=== PATIENT | male | born 1960 | race Caucasian/White ===

== ENCOUNTER 2024-08-08 08:59 | Inpatient (IN) ==
[2024-08-08] MEDS: ONDANSETRON 4 MG/2 ML VIAL IV ONE (09:30)
[2024-08-08] MEDS: 0.9 % SODIUM CHLORIDE 1,000 ML IV ONE (09:41)
[2024-08-08 10:15] LABS: Basophils # (Auto) 0.12 K/mcL (0.00-0.30); Basophils % (Auto) 1.2 % (0.0-2.0); Eosinophils # (Auto) 0.26 K/mcL (0.00-0.70); Eosinophils % (Auto) 2.6 % (0.0-7.0); Hematocrit 39.1 % (40.1-51.0); Hemoglobin 13.9 g/dL (13.7-17.5); Lymphocytes # (Auto) 1.14 K/mcL (1.50-4.80); Lymphocytes % (Auto) 11.3 % (15.5-49.0); Mean Cell Volume 82.7 fL (80.0-100.0); Mean Corpuscular HGB Conc 35.5 g/dL (31.0-36.0); Mean Platelet Volume 10.4 fL (8.8-12.5); Monocytes # (Auto) 0.45 K/mcL (0.10-0.90); Monocytes % (Auto) 4.5 % (1.0-12.0); Neutrophils % (Auto) 80.3 % (38.0-78.0); Platelet Count 306 K/mcL (140-440); RBC 4.73 M/mcL (4.63-6.08); Red Cell Distribution Width 13.2 % (11.5-14.5); WBC 10.1 K/mcL (4.5-11.0)
[2024-08-08 10:24] LABS: Thyroid Stimulating Hormone 1.13 uIU/mL (0.27-5.01)
[2024-08-08 10:46] LABS: ALT/SGPT 22 U/L (<40); AST/SGOT 40 U/L (<40); Albumin 2.8 gm/dL (3.2-5.2); Albumin/Globulin Ratio 0.8 (1.0-2.3); Alkaline Phosphatase 189 U/L (39-117); Bilirubin,Total 0.8 mg/dL (0.1-1.0); Blood Urea Nitrogen 22 mg/dL (8-23); Calcium 8.8 mg/dL (8.6-10.4); Carbon Dioxide 15 mmol/L (22-30); Chloride 107 mmol/L (96-108); Globulin 3.7 gm/dL (2.2-3.7); Glomerular Filtration Rate 23; Glucose 128 mg/dL (70-105); Potassium 3.2 mmol/L (3.3-5.1); Sodium 138 mmol/L (133-145)
[2024-08-08 10:47] LABS: INR 1.1 (0.9-1.1)
[2024-08-08 14:48] LABS: Appearance,Urine Clear (Clear); Bilirubin,Urine Negative (Negative); Color,Urine Yellow; Glucose,Urine (UA) 250 mg/dL (Negative); Ketones,Urine Negative (Negative); Leukocyte Esterase,Urine Negative /uL (Negative); Nitrate,Urine Negative (Negative); Protein,Urine >=300 mg/dL (Negative); Specific Gravity,Urine 1.025 (1.000-1.035); Urine Blood Moderate ery/mcL (Negative); Urine Hyaline Cast 4 /lph (0-2); Urine RBC 11 /hpf (0-3); Urine Squamous Epithelial Cell 2 /hpf (0-4); Urine WBC 2 /hpf (0-4); Urobilinogen,Urine Normal
[2024-08-08] MEDS ORDERED: DEXTROSE 31 GM ORAL.SUSP PO PRN (18:50)
[2024-08-08] MEDS ORDERED: ONDANSETRON 4 MG/2 ML VIAL IV PRN (18:50)
[2024-08-08] MEDS ORDERED: DEXTROSE 50% 50 ML VIAL IV PRN (18:50)
[2024-08-08] MEDS: 0.9 % SODIUM CHLORIDE 1,000 ML IV SCH (19:48)
[2024-08-08] MEDS: LISINOPRIL 20 MG TABLET PO SCH (20:01)
[2024-08-08] MEDS: BISOPROLOL 5 MG TABLET PO SCH (20:01)
[2024-08-08] MEDS: POLYETHYLENE GLYCOL 3350 17 GM PACKET PO ONE (20:08)
[2024-08-08] MEDS: POTASSIUM CHLORIDE 20 MEQ PACKET PO ONE (20:08)
[2024-08-08] MEDS: INSULIN LISPRO 1 UNIT/0.01 ML UNIT SQ SCH (21:04)
[2024-08-08] MEDS: SENNOSIDES 1 TABLET PO SCH (21:59)
[2024-08-08] MEDS: 0.9 % SODIUM CHLORIDE 10 ML SYRINGE IV SCH (22:00)
[2024-08-08] MEDS: ATORVASTATIN 40 MG TABLET PO SCH (22:00)
[2024-08-08] MEDS: TAMSULOSIN 0.4 MG CAPSULE PO SCH (22:00)
[2024-08-08 22:05] LABS: Potassium 4.7 mmol/L (3.3-5.1)
[2024-08-09] MEDS: ACETAMINOPHEN 325 MG TABLET PO PRN (05:47)
[2024-08-09 06:37] LABS: Basophils # (Auto) 0.06 K/mcL (0.00-0.30); Basophils % (Auto) 0.7 % (0.0-2.0); Eosinophils # (Auto) 0.11 K/mcL (0.00-0.70); Eosinophils % (Auto) 1.2 % (0.0-7.0); Hematocrit 39.8 % (40.1-51.0); Hemoglobin 13.9 g/dL (13.7-17.5); Lymphocytes # (Auto) 1.16 K/mcL (1.50-4.80); Mean Cell Volume 84.1 fL (80.0-100.0); Mean Corpuscular HGB Conc 34.9 g/dL (31.0-36.0); Mean Platelet Volume 10.5 fL (8.8-12.5); Monocytes # (Auto) 0.83 K/mcL (0.10-0.90); Monocytes % (Auto) 9.3 % (1.0-12.0); Neutrophils % (Auto) 75.7 % (38.0-78.0); Platelet Count 313 K/mcL (140-440); RBC 4.73 M/mcL (4.63-6.08); Red Cell Distribution Width 13.7 % (11.5-14.5); WBC 8.9 K/mcL (4.5-11.0)
[2024-08-09 06:55] LABS: ALT/SGPT 20 U/L (<40); AST/SGOT 30 U/L (<40); Albumin 2.8 gm/dL (3.2-5.2); Albumin/Globulin Ratio 0.9 (1.0-2.3); Alkaline Phosphatase 170 U/L (39-117); Bilirubin,Direct 0.4 mg/dL (<0.3); Bilirubin,Total 0.7 mg/dL (0.1-1.0); Blood Urea Nitrogen 27 mg/dL (8-23); Calcium 8.8 mg/dL (8.6-10.4); Carbon Dioxide 20 mmol/L (22-30); Chloride 108 mmol/L (96-108); Glomerular Filtration Rate 22; Glucose 124 mg/dL (70-105); Lactate Dehydrogenase 240 U/L (135-225); Phosphorous 3.8 mg/dL (2.5-4.5); Potassium 4.5 mmol/L (3.3-5.1); Sodium 139 mmol/L (133-145); Triglycerides 115 mg/dL (<150); Uric Acid 6.5 mg/dL (2.5-8.0)
[2024-08-09] MEDS: POLYETHYLENE GLYCOL 3350 17 GM PACKET PO SCH (08:07)
[2024-08-10 06:41] LABS: Basophils # (Auto) 0.08 K/mcL (0.00-0.30); Eosinophils % (Auto) 4.9 % (0.0-7.0); Hematocrit 35.8 % (40.1-51.0); Hemoglobin 12.2 g/dL (13.7-17.5); Lymphocytes # (Auto) 1.19 K/mcL (1.50-4.80); Lymphocytes % (Auto) 14.6 % (15.5-49.0); Mean Cell Volume 86.1 fL (80.0-100.0); Mean Corpuscular HGB Conc 34.1 g/dL (31.0-36.0); Mean Platelet Volume 10.3 fL (8.8-12.5); Monocytes # (Auto) 0.84 K/mcL (0.10-0.90); Monocytes % (Auto) 10.3 % (1.0-12.0); Neutrophils % (Auto) 69.1 % (38.0-78.0); Platelet Count 258 K/mcL (140-440); RBC 4.16 M/mcL (4.63-6.08); Red Cell Distribution Width 13.7 % (11.5-14.5); WBC 8.1 K/mcL (4.5-11.0)
[2024-08-10 06:56] LABS: ALT/SGPT 18 U/L (<40); AST/SGOT 31 U/L (<40); Albumin 2.5 gm/dL (3.2-5.2); Alkaline Phosphatase 140 U/L (39-117); Bilirubin,Direct 0.3 mg/dL (<0.3); Bilirubin,Total 0.6 mg/dL (0.1-1.0); Blood Urea Nitrogen 30 mg/dL (8-23); Calcium 8.3 mg/dL (8.6-10.4); Carbon Dioxide 16 mmol/L (22-30); Chloride 109 mmol/L (96-108); Globulin 2.5 gm/dL (2.2-3.7); Glomerular Filtration Rate 20; Glucose 91 mg/dL (70-105); Lactate Dehydrogenase 210 U/L (135-225); Phosphorous 3.9 mg/dL (2.5-4.5); Sodium 137 mmol/L (133-145); Triglycerides 103 mg/dL (<150); Uric Acid 6.3 mg/dL (2.5-8.0)
[2024-08-10] MEDS: 0.9 % SODIUM CHLORIDE 500 ML IV ONE (11:15)
[2024-08-10 13:40] LABS: Blood Urea Nitrogen 28 mg/dL (8-23); Calcium 8.1 mg/dL (8.6-10.4); Carbon Dioxide 18 mmol/L (22-30); Chloride 106 mmol/L (96-108); Glomerular Filtration Rate 21; Glucose 217 mg/dL (70-105); Potassium 4.2 mmol/L (3.3-5.1); Sodium 136 mmol/L (133-145)
[2024-08-10] MEDS ORDERED: hydrALAZINE 20 MG/ML VIAL IV PRN (15:28)
[2024-08-10] MEDS: IBUPROFEN 600 MG TABLET PO PRN (22:21)
[2024-08-10] MEDS: APIXABAN 5 MG TABLET PO SCH (22:22)
[2024-08-10] MEDS: INSULIN GLARGINE, HUMAN 1 UNIT/0.01 ML SQ SCH (22:41)
[2024-08-11 07:05] LABS: Basophils # (Auto) 0.08 K/mcL (0.00-0.30); Basophils % (Auto) 1.2 % (0.0-2.0); Eosinophils # (Auto) 0.45 K/mcL (0.00-0.70); Eosinophils % (Auto) 6.6 % (0.0-7.0); Hematocrit 32.7 % (40.1-51.0); Hemoglobin 11.6 g/dL (13.7-17.5); Lymphocytes # (Auto) 1.15 K/mcL (1.50-4.80); Lymphocytes % (Auto) 16.8 % (15.5-49.0); Mean Cell Volume 83.4 fL (80.0-100.0); Mean Corpuscular HGB Conc 35.5 g/dL (31.0-36.0); Mean Platelet Volume 10.5 fL (8.8-12.5); Monocytes # (Auto) 0.75 K/mcL (0.10-0.90); Monocytes % (Auto) 10.9 % (1.0-12.0); Neutrophils % (Auto) 64.4 % (38.0-78.0); Platelet Count 262 K/mcL (140-440); RBC 3.92 M/mcL (4.63-6.08); Red Cell Distribution Width 13.7 % (11.5-14.5); WBC 6.9 K/mcL (4.5-11.0)
[2024-08-11 07:33] LABS: ALT/SGPT 20 U/L (<40); AST/SGOT 35 U/L (<40); Albumin 2.6 gm/dL (3.2-5.2); Alkaline Phosphatase 142 U/L (39-117); Bilirubin,Direct 0.3 mg/dL (<0.3); Bilirubin,Total 0.6 mg/dL (0.1-1.0); Blood Urea Nitrogen 29 mg/dL (8-23); Carbon Dioxide 20 mmol/L (22-30); Chloride 106 mmol/L (96-108); Globulin 2.5 gm/dL (2.2-3.7); Glomerular Filtration Rate 22; Glucose 62 mg/dL (70-105); Lactate Dehydrogenase 212 U/L (135-225); Phosphorous 3.4 mg/dL (2.5-4.5); Potassium 3.6 mmol/L (3.3-5.1); Sodium 136 mmol/L (133-145); Triglycerides 97 mg/dL (<150); Uric Acid 6.1 mg/dL (2.5-8.0)
[2024-08-11] MEDS: amLODIPine 10 MG TABLET PO SCH (08:17)
[2024-08-12 06:20] LABS: Basophils # (Auto) 0.07 K/mcL (0.00-0.30); Basophils % (Auto) 0.9 % (0.0-2.0); Eosinophils # (Auto) 0.22 K/mcL (0.00-0.70); Eosinophils % (Auto) 2.9 % (0.0-7.0); Hemoglobin 11.2 g/dL (13.7-17.5); Lymphocytes # (Auto) 0.93 K/mcL (1.50-4.80); Lymphocytes % (Auto) 12.2 % (15.5-49.0); Mean Platelet Volume 10.3 fL (8.8-12.5); Monocytes # (Auto) 0.73 K/mcL (0.10-0.90); Monocytes % (Auto) 9.6 % (1.0-12.0); Neutrophils % (Auto) 74.3 % (38.0-78.0); Platelet Count 274 K/mcL (140-440); RBC 3.81 M/mcL (4.63-6.08); Red Cell Distribution Width 13.4 % (11.5-14.5); WBC 7.6 K/mcL (4.5-11.0)
[2024-08-12 06:51] LABS: ALT/SGPT 20 U/L (<40); AST/SGOT 34 U/L (<40); Albumin 2.7 gm/dL (3.2-5.2); Albumin/Globulin Ratio 1.2 (1.0-2.3); Alkaline Phosphatase 139 U/L (39-117); Bilirubin,Direct 0.3 mg/dL (<0.3); Bilirubin,Total 0.5 mg/dL (0.1-1.0); Blood Urea Nitrogen 31 mg/dL (8-23); Calcium 7.9 mg/dL (8.6-10.4); Carbon Dioxide 17 mmol/L (22-30); Chloride 105 mmol/L (96-108); Globulin 2.3 gm/dL (2.2-3.7); Glomerular Filtration Rate 22; Glucose 84 mg/dL (70-105); Lactate Dehydrogenase 206 U/L (135-225); Phosphorous 3.6 mg/dL (2.5-4.5); Potassium 3.7 mmol/L (3.3-5.1); Sodium 134 mmol/L (133-145); Triglycerides 87 mg/dL (<150); Uric Acid 6.2 mg/dL (2.5-8.0)
[2024-08-12] MEDS: MEGESTROL ACETATE 400 MG/10 ML UDC PO SCH (08:32)
[2024-08-12] MEDS ORDERED: INSULIN GLARGINE, HUMAN 1 UNIT/0.01 ML SQ SCH (21:00)
== END 2024-08-12 13:48 | DRG 682 ==
LOC: MEDSUR 08:59 → ED 08:59 → MEDSUR 18:41
PROVIDERS: ADMIT Student in an Organized Health Care Education/Training Program; ATTEND Internal Medicine